=== PATIENT | female | born 1985 | race Caucasian/White ===

== ENCOUNTER 2016-10-28 09:24 | Emergency (ER) | payer MEDICAID, OTHER ==
[~2016-10-28] VITALS: Ht 157.5 cm; Wt 79.9 kg
[2016-10-28 09:26] VITALS: Ht 157.5 cm; Wt 79.9 kg
[2016-10-28 11:17] LABS: URINE BLOOD (Dip) POC Negative (NEGATIVE)
[2016-10-28] MEDS ORDERED: ONDANSETRON (ODT) 4 MG TAB ODT STA (11:27)
[2016-10-28] MEDS ORDERED: HYDROCODONE/APAP (5/325) TAB PO ONE (11:30)
--- NOTE | 2016-10-28 11:31 | ERD ---
ER Documentation Chief Complaint Date/Time DATE: 10/28/16 TIME: 11:30 Chief Complaint lmp 1 1/2 mos ago? wants to have preg test HPI Is a 31 year-old female who presents to the emergency department today complaining of bone pain for the past 3 weeks, headache and dizziness that started this morning. A rash in her vaginal area and she has not had her period for a month and a half and has lower abdominal pain. States she thinks she had a fever yesterday. She is also nauseated and has some vomiting. ROS All systems reviewed and are negative except as per history of present illness. Medications Home Meds Active Scripts Ondansetron Hcl* (Zofran*) 4 Mg Tablet, 4 MG PO Q6H for NAUSEA AND/OR VOMITING, #30 TAB Prov:ALEXSANDRA FORD PA-C 10/28/16 Hydrocortisone Acetate (Anusol-Hc) 25 Mg Supp.rect, 1 SUPP CA QHS Y for HEMORROID PAIN/ITCHING, #12 SUPP.RECT Prov:ALEXSANDRA FORD PA-C 10/28/16 Docusate Sodium* (Colace*) 100 Mg Capsule, 100 MG PO TID, #30 CAP Prov:ALEXSANDRA FODR PA-C 10/28/16 Ibuprofen* (Motrin*) 800 Mg Tab, 800 MG PO Q6, #30 TAB Prov:ALEXSANDRA FORD PA-C 10/28/16 Hydrocodone/Acetaminophen (Linkwood 5-325 Tablet) 1 Each Tablet, 1 TAB PO Q6H Y for PAIN, #12 TAB Prov:ALEXSANDRA FORD PA-C 10/28/16 Allergies Allergies: Coded Allergies: No Known Allergy (Unverified , 10/28/16) PMhx/Soc Medical and Surgical Hx: pt denies Medical Hx, pt denies Surgical Hx Hx Alcohol Use: No Hx Substance Use: No Hx Tobacco Use: No Smoking Status: Never smoker Physical Exam Vitals Vital Signs Date Time Temp Pulse Resp B/P Pulse Ox O2 Delivery O2 Flow Rate FiO2 10/28/16 09:26 98.1 71 20 119/72 99 Physical Exam Const: No acute distress Head: Atraumatic Eyes: Normal Conjunctiva ENT: Normal External Ears, Nose and Mouth. Neck: Full range of motion..~ No meningismus. Resp: Clear to auscultation bilaterally Cardio: Regular rate and rhythm, no murmurs Abd: Soft, suprapubic and pelvic tenderness non distended. Normal bowel sounds. No right lower quadrant pain. No tenderness at McBurney's. No left lower quadrant pain : Normal external vaginal exam. No evidence of rash or purulent drainage. Evidence of hemorrhoids. Skin: No petechiae or rashes Back: No midline or flank tenderness Ext: No cyanosis, or edema Neur: Awake and alert. No gait ataxia Psych: Normal Mood and Affect Result Diagram: 10/28/16 1100 10/28/16 1100 Results 24 hrs Laboratory Tests Test 10/28/16 11:00 10/28/16 11:17 Alanine Aminotransferase (ALT/SGPT) 27IU/L Albumin 4.6g/dl Albumin/Globulin Ratio 1.31 Alkaline Phosphatase 83IU/L Anion Gap 18 Aspartate Amino Transf (AST/SGOT) 23IU/L Basophils # 0.010^3/ul Basophils % 0.3% Blood Morphology Comment Blood Urea Nitrogen 11mg/dl Calcium Level 9.4mg/dl Carbon Dioxide Level 30mmol/L Chloride Level 100mmol/L Creatinine 0.60mg/dl Direct Bilirubin 0.00mg/dl Eosinophils # 0.110^3/ul Eosinophils % 1.1% Globulin 3.50g/dl Glucose Level 95mg/dl Hematocrit 39.3% Hemoglobin 13.0g/dl Indirect Bilirubin 0.3mg/dl Lymphocytes # 1.810^3/ul Lymphocytes % 27.1% Mean Corpuscular Hemoglobin 25.7pg Mean Corpuscular Hemoglobin Concent 33.0g/dl Mean Corpuscular Volume 77.8fl Mean Platelet Volume 9.4fl Monocytes # 0.510^3/ul Monocytes % 7.9% Neutrophils # 4.210^3/ul Neutrophils % 63.6% Nucleated Red Blood Cells # 0.010^3/ul Nucleated Red Blood Cells % 0.0/100WBC Platelet Count 66230^3/UL Potassium Level 3.9mmol/L Red Blood Count 5.0510^6/ul Red Cell Distribution Width 15.5% Sodium Level 144mmol/L Total Bilirubin 0.3mg/dl Total Protein 8.1g/dl White Blood Count 6.610^3/ul Bedside Urine Blood Negative Bedside Urine Glucose (UA) Negative Bedside Urine Ketones (LAB) Negative Bedside Urine Leukocyte Esterase (L Negative Bedside Urine Nitrite (LAB) Negative Bedside Urine Protein (LAB) Negative Bedside Urine pH (LAB) 7.5 Current Medications Medications (Trade) Dose Ordered Sig/Sudhakar Route PRN Reason Start Time Stop Time Status Last Admin Dose Admin Acetaminophen/ Hydrocodone Bitart (Linkwood (5/325)) 1 tab ONCE ONCE PO 10/28/16 11:30 10/28/16 11:31 DC 10/28/16 11:37 Ondansetron HCl (Zofran Odt) 4 mg ONCE STAT ODT 10/28/16 11:27 10/28/16 11:30 DC 10/28/16 11:37 Patient: LEENA GALVEZ : 1985 Age: 31 Sex: F MR #: [id number] DOS: 10/28/16 0000 Ordering MD: ALEXSANDRA FORD PA-C Location: [facility] Room/Bed: PROCEDURE: US Pelvis. CLINICAL INDICATION: Pelvic pain TECHNIQUE: Multiple sonographic images of the pelvis were obtained utilizing a transabdominal and endovaginal technique. The images were reviewed on a PACS workstation. COMPARISON: None. FINDINGS: The uterus is visualized and measures 8.9 x 5.3 x 5.9 cm. The endometrial echo complex measures 16 mm thickness. 1.9 cm intramural uterine fibroid is identified in the uterus. The right ovary measures 2.9 x 1.6 x 2.7 cm . The left ovary measures 3.5 x 2.0 x 2.3 cm. Both ovaries deomnstrate a normal echogenicity and vascular flow. Small amount of free fluid is noted in the cul-de-sac. IMPRESSION: Thickened endometrium. Continued follow-up to assess for persistence of this finding can be considered. 1.9 cm intramural uterine fibroid. Small amount of nonspecific free fluid in the cul-de-sac. This could be physiologic. If further characterization of the organs of the pelvis is needed MRI should be considered. RPTAT: AA .Luis Armando Cueva MD, MD Date Time Electronically viewed and signed by .Luis Armando Cueva MD, MD on 10/28/2016 12:59 .P/ CC: ALEXSANDRA FORD PA-C Procedures/MDM This is a 31-year-old who presents to the emergency department today with multiple complaints. Given her complaints of pelvic pain and low back pain did obtain laboratory work as well as a UA, urine and pelvic ultrasound Laboratory work shows elevated white blood cell count. She is not anemic. Electrolytes are within normal limits. Liver function is within normal limits. Glucose is within normal limits. UA is negative for infection. test is negative. Suspicion for ectopic , tubo-ovarian abscess, ovarian torsion. Pelvic ultrasound shows a thickened endometrium. Ovaries have normal vascular throat. There is a small amount of free fluid that could be physiologic. Patient is a 1.9 cm intramural uterine fibroid. This could be the cause of the patient's lower pelvic pain. Results the patient explained to her that she needs to see an COMMERCIAL HVAC TECHNICIAN. As the right lower quadrant pain in the left lower quadrant pain and do not feel that she requires a CT scan at this time. Low suspicion for any acute surgical abdomen. Patient is afebrile and otherwise well appearing. Symptoms of headache and bone pain may be related to viral type illness. She has no focal neurologic deficits and she has no gait ataxia and I do not feel that she requires a head CT. She was given Linkwood,Zofran here in the emergency department symptoms improved. She'll be given a prescription for Linkwood, Motrin, Colace, Zofran for home. As well as a prescription for Anusol for her hemorrhoid At this time the patient is stable for discharge and outpatient management. Patient should follow up with their PCP in the next 1-2 days. They may return to the emergency department sooner for any persistent or worsening of symptoms. Patient understood and agreed with the plan. Departure Diagnosis: Primary Impression: Multiple complaints Condition: Fair ALEXSANDRA FORD PA-C Oct 28, 2016 11:31
[2016-10-28 12:07] LABS: BASOPHILS % 0.3 % (0.0-2.0); EOSINOPHILS # 0.1 10^3/ul (0.0-0.5); EOSINOPHILS % 1.1 % (0.0-7.0); HEMATOCRIT 39.3 % (37.0-47.0); LYMPHOCYTES # 1.8 10^3/ul (0.8-2.9); LYMPHOCYTES % 27.1 % (15.0-51.0); MEAN CORPUSCULAR HEMOGLOBIN 25.7 pg (29.0-33.0); MEAN CORPUSCULAR VOLUME 77.8 fl (82.0-101.0); MEAN PLATELET VOLUME 9.4 fl (7.4-10.4); MONOCYTE # 0.5 10^3/ul (0.3-0.9); MONOCYTES % 7.9 % (0.0-11.0); NEUTROPHIL # 4.2 10^3/ul (1.6-7.5); NEUTROPHILS % 63.6 % (39.0-77.0); PLATELET COUNT 308 10^3/UL (140-440); RED BLOOD COUNT 5.05 10^6/ul (4.20-5.40); RED CELL DISTRIBUTION WIDTH 15.5 % (11.5-14.5); UNCORRECTED WBC 6.6 10^3/ul (4.8-10.8); WHITE BLOOD COUNT 6.6 10^3/ul (4.8-10.8)
[2016-10-28 12:09] LABS: ALBUMIN 4.6 g/dl (3.3-4.9)
[2016-10-28 12:10] LABS: POTASSIUM 3.9 mmol/L (3.5-5.1)
[2016-10-28 12:12] LABS: ALBUMIN/GLOBULIN RATIO 1.31; BILIRUBIN,INDIRECT 0.3 mg/dl (0-1.1); BILIRUBIN,TOTAL 0.3 mg/dl (0.2-1.3); CONDITION 1; CREATININE 0.6 mg/dl (0.44-1.00); LH ANALYZER COMMENTS 1; TOTAL PROTEIN 8.1 g/dl (6.1-8.1)
[2016-10-28 12:13] LABS: CALCIUM 9.4 mg/dl (8.4-10.2)
--- NOTE | 2016-10-28 12:59 | RADRPT ---
PROCEDURE: US Pelvis. CLINICAL INDICATION: Pelvic pain TECHNIQUE: Multiple sonographic images of the pelvis were obtained utilizing a transabdominal and endovaginal technique. The images were reviewed on a PACS workstation. COMPARISON: None. FINDINGS: The uterus is visualized and measures 8.9 x 5.3 x 5.9 cm. The endometrial echo complex measures 16 m m thickness. 1.9 cm intramural uterine fibroid is identified in the uterus. The right ovary measures 2.9 x 1.6 x 2.7 cm . The left ovary measures 3.5 x 2.0 x 2.3 cm. Both ov isidro deomnstrate a normal echogenicity and vascular flow. Small amount of free fluid is noted in the cul-de-sac. IMPRESSION: Thickened endometrium. Continued follow-up to assess for persistence of this finding can be conside red. 1.9 cm intramural uterine fibroid. Small amount of nonspecific free fluid in the cul-de-sac. This could be physiologic. If further characterization of the organs of the pelvis is needed MRI should be considered. RPTAT: AA .Luis Armando Cueva MD, Date Time Electronically viewed and signed by .Luis Armando Cueva MD, on 10/28/2016 12:59 .P/
[2016-10-28] MEDS ORDERED: HYDR25SU23 PR (13:23)
[2016-10-28] MEDS ORDERED: DOCU-144 PO (13:23)
[2016-10-28] MEDS ORDERED: IBUP800T25 PO (13:23)
[2016-10-28] MEDS ORDERED: HYDR-906 PO (13:23)
[2016-10-28] MEDS ORDERED: ONDA4TAB8 PO (13:26)
[2016-10-28 13:43] VITALS: BP 122/70; PULSE 74; RESP 18; TEMP 98.1
== END 2016-10-28 13:40 | disposition home or self-care (01) ==
LOC: FTE 09:24
DX: R51 Headache (principal); R42 Dizziness and giddiness; R21 Rash and other nonspecific skin eruption; R10.30 Lower abdominal pain, unspecified; R11.2 Nausea with vomiting, unspecified; R10.2 Pelvic and perineal pain
CPT/HCPCS: 76830; 76856; 80053; 81003; 85025; Z7502; Z7610

== ENCOUNTER 2017-01-03 10:22 | Emergency (ER) | payer MEDICAID ==
[~2017-01-03] VITALS: Ht 165.1 cm; Wt 89.0 kg
[~2017-01-03 10:22] MED LIST: DOCU-144 PO; HYDR-906 PO; HYDR25SU23 PR; IBUP800T25 PO; ONDA4TAB8 PO
[2017-01-03 10:43] VITALS: Ht 165.1 cm; Wt 89.0 kg
[2017-01-03 13:16] LABS: URINE BLOOD (Dip) POC 2+ (NEGATIVE)
--- NOTE | 2017-01-03 13:47 | RADRPT ---
PROCEDURE: US Pelvis. CLINICAL INDICATION: Vaginal bleeding. TECHNIQUE: Sonographic evaluation of the pelvis was performed utilizing both transabdominal and tr ansvaginal technique.Curved array transabdominal transducer technique as well as a high frequency en dovaginal probe was utilized. Images were reviewed on the high-resolution PACS workstation. COMPARISON: No prior studies are available for comparison. FINDINGS: The uterus is normal in size, echogenicity, and morphology and measures 11.1 x 6.2 x 7.8 cm. There is a hypoechoic 1.2 cm intramural mass at the posterior fundus consistent with fibroid. The endometr ium is normal measuring 7.2 mm. The right ovary measures 4.1 x 1.6 x 2.4 cm in dimension. The left ovary measures 3.3 x 1.8 x 3.0 cm in dimension. The ovaries are symmetric in size, echogenicity, f low, and morphology. . There are no adnexal masses. There is no significant free fluid in the pelvi s. No other incidental abnormality is identified. IMPRESSION: 1.2 cm posterior fundal intramural fibroid. Otherwise unremarkable pelvic ultrasound. RPTAT: VV .Gabriel Hopper MD, Date Time Electronically viewed and signed by .Gabriel Hopper MD, on 01/03/2017 13:47 .L/
[2017-01-03] MEDS ORDERED: MEDR10TA2 PO (14:25)
[2017-01-03] MEDS ORDERED: CEPH-443 PO (14:27)
--- NOTE | 2017-01-03 14:31 | ERD ---
ER Documentation Chief Complaint Date/Time DATE: 01/03/17 TIME: 14:29 Chief Complaint VAGINAL BLEEDING AND LOWER ABD CRAMPING X 3 DAYS HPI This 31-year-old female presents with vaginal bleeding and suprapubic cramping for last 3 days. She was seen here for similar symptoms approximately 2 months ago. She had a small intramural fibroid and endometrial thickening. She went to the clinic today but due to insurance reasons worse to the emergency department for possible endometrial biopsy and repeat ultrasound. There is also request a referral for [facility] services for follow-up by the clinic today. She has a fevers, vomiting, or known . Last menstrual period was approximately 2 weeks ago. ROS All systems reviewed and are negative except as per history of present illness. Medications Home Meds Active Scripts Cephalexin* (Keflex*) 500 Mg Capsule, 500 MG PO QID for 5 Days, CAP Prov:CESILIA MARTIN MD 01/03/17 Medroxyprogesterone Acetate* (Provera*) 10 Mg Tablet, 10 MG PO DAILY for 5 Days , TAB Prov:CESILIA MARTIN MD 01/03/17 Ondansetron Hcl* (Zofran*) 4 Mg Tablet, 4 MG PO Q6H for NAUSEA AND/OR VOMITING, #30 TAB Prov:ALEXSANDRA FORD PA-C 10/28/16 Hydrocortisone Acetate (Anusol-Hc) 25 Mg Supp.rect, 1 SUPP VT QHS Y for HEMORROID PAIN/ITCHING, #12 SUPP.RECT Prov:ALEXSANDRA FORD PA-C 10/28/16 Docusate Sodium* (Colace*) 100 Mg Capsule, 100 MG PO TID, #30 CAP Prov:ALEXSANDRA FORD PA-C 10/28/16 Ibuprofen* (Motrin*) 800 Mg Tab, 800 MG PO Q6, #30 TAB Prov:ALEXSANDRA FORD PA-C 10/28/16 Hydrocodone/Acetaminophen (Novinger 5-325 Tablet) 1 Each Tablet, 1 TAB PO Q6H Y for PAIN, #12 TAB Prov:ALEXSANDRA FORDC 10/28/16 Allergies Allergies: Coded Allergies: No Known Allergy (Unverified , 10/28/16) PMhx/Soc Medical and Surgical Hx: pt denies Medical Hx, pt denies Surgical Hx Hx Alcohol Use: No Hx Substance Use: No Hx Tobacco Use: No Physical Exam Vitals Vital Signs Date Time Temp Pulse Resp B/P Pulse Ox O2 Delivery O2 Flow Rate FiO2 01/03/17 10:43 98.4 73 19 110/75 100 Physical Exam Const: [], [id number] per Head: Atraumatic Eyes: Normal Conjunctiva. No pallor of the lids ENT: Normal External Ears, Nose and Mouth. Neck: Full range of motion..~ No meningismus. Resp: Clear to auscultation bilaterally Cardio: Regular rate and rhythm, no murmurs Abd: Soft, non tender, non distended. Normal bowel sounds Skin: No petechiae or rashes Back: No midline or flank tenderness Ext: No cyanosis, or edema Neur: Awake and alert Psych: Normal Mood and Affect Results 24 hrs Laboratory Tests Test 01/03/17 13:14 Bedside Urine Blood 2+ Bedside Urine Glucose (UA) Negative Bedside Urine Ketones (LAB) Negative Bedside Urine Leukocyte Esterase (L 1+ Bedside Urine Nitrite (LAB) Negative Bedside Urine Protein (LAB) Negative Bedside Urine pH (LAB) 7.5 Procedures/MDM Pelvic ultrasound shows a similar intramural fibroid without endometrial thickening or no additional acute abnormalities. Urine shows 1+ leukocytes. HCG is negative. Patient presents with vaginal bleeding for last 3 days and a history of metrorrhagia. Patient was given a short course of Provera and copies of her reports and referred to local public resources for further evaluation and ongoing management of her dysfunctional uterine bleeding. Patient shows no signs or symptoms to suggest anemia so repeat blood work was deferred. Patient will be referred to local facilities for follow-up with primary care she should otherwise return to ER for fevers, vomiting, abdominal pain, new worsening symptoms. Signs or symptoms and studies today not consistent with ectopic , complications of , acute abdomen, anemia, hemorrhaging. The patient was stable with no new complaints during the ER course. Clinically, there is no current evidence to suggest meningitis, sepsis, acute abdomen, pneumonia, acute coronary syndrome, pulmonary embolism, or any other emergent condition appearing to require further evaluation or hospitalization. The patient should certainly return for any new or worsening symptoms per the aftercare instructions. They should otherwise follow-up with her primary care doctor for reevaluation this week. Departure Diagnosis: Primary Impression: UTI (urinary tract infection) Urinary tract infection type: acute cystitis Hematuria presence: without hematuria Qualified Code: N30.00 - Acute cystitis without hematuria Additional Impression: Vaginal bleeding Condition: Stable Patient Instructions: Understanding Urinary Tract Infections (UTIs), Dysfunctional Uterine Bleeding Additional Instructions: hay maxx un fibroid y poquito infeccion en orina.. Va al gudino doctor/ specialista para mas evaluacon en el proximo semana. posiblemente necesita autorizado de gudino doctor primario para specialista. Regresa para fiebre, o mas o nueva simptomas. Request to Evaluate for Specialty Care (Use this form only for uninsured patients) Referring Provider:CESILIA MARTIN MD Patient Date of :1985 Specialty and Clinical reason(s) for request: Dysfunctional uterine bleeding Patients Medications: Provera 5 days Patients Pertinent Tests: Ultrasound Hospital Contact: [address] [place] [address] List of [facility] Facilities with Urgent Care Clinics [address] [address] 8:00am-12:00am (Midnight)(7 days a week) SURINDER Hunter [facility] [address] [address] 7:30am-11:00pm (7 days a week) Mabel Velez [facility] [address] [place], [place] [address] 7:30am-12:00am (Midnight) 7:30am-8:00pm (Monday,Monday & Holidays) Fabiano Santiago [facility] [address] [place], [place] [address] 8:00am-11:00pm (7 days a week) González Cole [facility] [address] [place], [place] [address] 8:00am-4:30pm (Monday-Monday) 8:30am-5:00pm (Monday) [facility] [address] [place], [place] [address] 8:00am-7:30pm (Monday-Monday) 8:00am-4:30pm (Monday) Clinical Services are not guaranteed as a result of this request. They are rendered based on medical necessity and are at the sole discretion of [facility]'s staff. The uninsured patient should bring the following ID documents: 1-Current [employer] Assistant [employer] Shift Manager's License or government issued ID (such as [facility] Consular ID or passport) 2-Social Security Card (if they have) 3-Proof of address 4-Proof of income CESILIA MARTIN MD Jan 03, 2017 14:31
== END 2017-01-03 14:58 | disposition home or self-care (01) ==
LOC: FTE 10:22
DX: N30.00 Acute cystitis without hematuria (principal)
CPT/HCPCS: 76830; 76856; 81003; Z7502

== ENCOUNTER 2018-08-03 08:36 | Emergency (ER) | END 2018-08-03 10:45 | disposition home or self-care (01) ==

== ENCOUNTER 2018-10-05 14:38 | Emergency (ER) | END 2018-10-05 15:33 | disposition home or self-care (01) ==